=== PATIENT | male | born 1980 | race Caucasian/White ===

== ENCOUNTER 2020-04-20 06:05 | Inpatient (IN) | payer SELFPAY ==
[2020-04-20 06:16] VITALS: BMI 31.6
[2020-04-20] MEDS ORDERED: ONDANSETRON 4 MG/2 ML VIAL IVPUSH ONE ×2 (06:36→09:07)
[2020-04-20] MEDS ORDERED: ONDANSETRON 4 MG/2 ML VIAL ONE ×2 (06:36→09:09)
[2020-04-20 07:03] LABS: BASO % 0.5 % (0-2.0); EOS % 0.1 % (0-4.5); HEMATOCRIT 45.8 % (35.4-49); LYMPH % 13.2 % (8-40); MCH 28.7 pg (25.7-33.7); MCHC 32.7 g/dl (32.0-35.9); MEAN CELL VOLUME 87.6 fl (80-96); MEAN PLT VOLUME 9.5 fl (7.5-11.1); NEUT % 78.2 % (42.8-82.8); PLATELET COUNT 267 K/MM3 (134-434); RBC 5.22 M/mm3 (4.00-5.60); RDW 13.6 % (11.9-15.9)
[2020-04-20 07:08] LABS: INR 1.02 (0.83-1.09); PROTHROMBIN TIME (PATIENT) 12.5 SEC (9.7-13.0)
[2020-04-20 07:10] LABS: ACTIVATED PTT 26.8 SECONDS (25.2-36.5)
[2020-04-20 07:19] LABS: POTASSIUM 4.7 mmol/L (3.5-5.1)
[2020-04-20 07:22] LABS: ALBUMIN 4.3 g/dl (3.4-5.0); BLOOD UREA NITROGEN 19.4 mg/dL (7-18); CALCIUM 9.7 mg/dL (8.5-10.1)
[2020-04-20 07:24] LABS: MAGNESIUM 2.6 mg/dL (1.8-2.4)
[2020-04-20 07:27] LABS: BILIRUBIN,TOTAL 0.7 mg/dL (0.2-1); TOT PROT 8.3 g/dl (6.4-8.2)
[2020-04-20] MEDS ORDERED: GLUCAGON 1 MG KIT IVPUSH ONE (08:37)
[2020-04-20] MEDS ORDERED: GlUCAGON HUMAN RECOMBINANT 1 MG/VIAL IM ONE (09:08)
[2020-04-20] MEDS ORDERED: LACTATED RINGERS SOLUTION 1000 ML INFUS.BAG IV ONE (09:22)
[2020-04-20] MEDS ORDERED: PANTOPRAZOLE SODIUM 40 MG VIAL IVPUSH SCH (10:30)
[2020-04-20] MEDS ORDERED: SODIUM CHLORIDE 1,000 ML IV SCH (10:30)
[2020-04-20] MEDS ORDERED: PANTOPRAZOLE SODIUM 40 MG/100 ML BAG IVPB ONE (10:43)
[2020-04-20] MEDS ORDERED: LABETALOL HCL 5 MG/1 ML (100MG/20 ML VIAL) IVPUSH ONE (11:07)
[2020-04-20] MEDS ORDERED: PROPOFOL 20 ML ONE ×3 (12:29)
[2020-04-20] MEDS ORDERED: MIDAZOLAM HCL 2 MG/2 ML SINGLE DOSE VIAL ONE (12:29)
[2020-04-20] MEDS ORDERED: fentaNYL CITRATE 250 MCG/5 ML VIAL ONE (12:30)
[2020-04-20 14:30] VITALS: BP 138/80; PULSE 87; TEMP 97.7
[2020-04-20] MEDS ORDERED: PANTOPRAZOLE 40 MG TABLET PO SCH (22:00)
== END 2020-04-20 15:37 | disposition left against medical advice (07) | DRG 254 ==
LOC: JER 06:05 → JERBED 09:57 → J6S 14:05
PROC: 0DC58ZZ Extirpation of Matter from Esophagus, Via Natural or Artificial Opening Endoscopic (ICD-10-PCS; principal; 2020-04-20 12:43)
DX: T18.128A Food in esophagus causing other injury, initial encounter (principal); K20.0 Eosinophilic esophagitis; R13.10 Dysphagia, unspecified; K21.9 Gastro-esophageal reflux disease without esophagitis; R07.89 Other chest pain; F90.1 Attention-deficit hyperactivity disorder, predominantly hyperactive type; I10 Essential (primary) hypertension; E66.9 Obesity, unspecified; X58.XXXA Exposure to other specified factors, initial encounter; Y93.89 Activity, other specified; Y92.89 Other specified places as the place of occurrence of the external cause; Y99.8 Other external cause status; Z68.31 Body mass index [BMI] 31.0-31.9, adult
CPT/HCPCS: 36415; 71045-TC-FY; 80053; 82550; 82553; 83735; 84484; 85025; 85610; 85730; 86850; 86900; 86901; 88300-TC; 93005; 93010; 99285-25; C9803; U0003